=== PATIENT | female | born 1955 | race Caucasian/White ===

== ENCOUNTER → 2019-06-19 12:21 | Outpatient (CLI) | payer MEDICARE, SELFPAY ==
--- NOTE | 2019-06-19 12:57 | CA_ITS ---
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: CT Laterality: Bilateral Study Quality: Good Indications: syncope Risk Factors Hypertension: Doppler Spectral Velocity Analysis ECA (R) 96.80/19.70 cm/s ECA (L) 77.10/16.50 cm/s dICA (R) 63.50/31.30 cm/s dICA (L) 57.10/24.40 cm/s Alisson (R) 71.30/26.40 cm/s Alisson (L) 97.00/36.00 cm/s pICA (R) 109.70/45.20 cm/s pICA (L) 50.80/20.30 cm/s dCCA (R) 71.10/20.60 cm/s dCCA (L) 59.10/21.20 cm/s pCCA (R) 59.10/18.80 cm/s pCCA (L) 55.20/14.10 cm/s Vert (R) 39.80/15.80 cm/s Vert (L) 34.70/11.60 cm/s ICA/CCA 1.50 ICA/CCA 1.60 Conclusion Duplex evaluation demonstrates stenosis of the right proximal internal carotid artery <20% with PSV <140 cm/sec, EDV <100 cm/sec, and IC/CC Ratio <4.0. Duplex evaluation demonstrates stenosis of the left proximal internal carotid artery <20% with PSV <140 cm/sec, EDV <100 cm/sec, and IC/CC Ratio <4.0. Duplex evaluation demonstrates antegrade flow of the bilateral Vertebral Arteries. Electronically signed by : Andrae Gee MD 06/19/2019 16:31:30
== END ==
DX: R55 Syncope and collapse (principal); I10 Essential (primary) hypertension
CPT/HCPCS: 93880

== ENCOUNTER → 2020-04-22 14:39 | Outpatient (CLI) | payer MEDICARE, SELFPAY ==
--- NOTE | 2020-04-22 14:41 | MM_ITS ---
PROCEDURE: MM DIG MAMM BI DX W/CAD Digital Breast Tomosynthesis Included CLINICAL INDICATION: MASTODYNIA There is a history of breast cancer patient's sister diagnosed in her 50s. The patient complains of pain in the left breast. COMPARISON: No exams were available for comparison TECHNIQUE: Standard CC and MLO images and 3D Tomosynthesis was obtained. R2 CAD reviewed. FINDINGS: Scattered fibroglandular densities are seen throughout both breasts. There couple of benign-appearing calcifications right breast and a few scattered benign-appearing microcalcifications subareolar region left breast. There is faint arterial calcification right breast. There are fatty replaced nodes in both axilla. There is no suspicious lesion and no suspicious microcalcifications. IMPRESSION: Fibrofatty parenchyma with no suspicious lesions seen BI-RAD Category: 2 Benign Finding(s) FOLLOW-UP: 1YR 1 Year Follow-up (A letter has been sent to the patient regarding results of the study.) Dictated by: Dr. Tung Jackman MD 04/28/2020 09:16 Dr. Tung Jackman MD in [place] 04/28/2020 09:16
== END ==
PROVIDERS: PCP Nurse Practitioner Family; Visit Provider Nurse Practitioner Family
DX: N64.4 Mastodynia (principal); Z80.3 Family history of malignant neoplasm of breast
CPT/HCPCS: 77062; 77066; G0279

== ENCOUNTER → 2021-05-13 13:38 | Outpatient (CLI) | payer MEDICARE, SELFPAY ==
[2021-05-13 13:34] LABS: Basophils % 0.6 % (0.1-2.0); Eosinophils # 0.2 K/mm3 (0.0-0.4); Eosinophils % 2.6 % (0.1-12.0); Hematocrit 46.1 % (37.0-47.0); Hemoglobin 15.8 g/dL (12.2-16.2); Lymphocytes # 3.1 K/mm3 (0.7-4.5); Lymphocytes % 47.5 % (10-50); Mean Corpuscular HGB Conc 34.3 g/dL (31.8-35.4); Mean Corpuscular Volume 98.9 fl (81-99); Mean Platelet Volume 7.7 fl (7.4-10.4); Monocytes # 0.4 K/mm3 (0.1-1.0); Monocytes % 6.2 % (1.7-9.3); Neutrophils # 2.8 K/mm3 (1.8-7.8); Neutrophils % 43.1 % (37.0-80.0); Platelet Count 245 K/mm3 (142-424); Red Blood Count 4.66 M/mm3 (4.20-5.40); Red Cell Distribution Width 12.5 % (11.5-17.5); White Blood Count 6.6 K/mm3 (4.8-10.8)
[2021-05-13 13:43] LABS: Hemoglobin A1C 7.5 % (4.0-6.0)
[2021-05-13 14:20] LABS: Alanine Aminotransferase 22 U/L (12-78); Albumin Level 4.4 g/dl (3.5-5.0); Albumin/Globulin Ratio 1.8 (1.1-1.8); Alkaline Phosphatase 57 U/L (38-126); Anion Gap 12.5 mEq/L (5-15); Aspartate Amino Transferase 24 U/L (14-36); Bilirubin,Total 0.5 mg/dl (0.2-1.3); Blood Urea Nitrogen 9 mg/dl (7-17); Calcium 9.5 mg/dl (8.4-10.2); Carbon Dioxide 30 mmol/L (22.0-30.0); Chloride 98 mmol/L (98-107); Chol/HDL Ratio 2.6 (1-3.5); Cholesterol 144 mg/dl (140-200); Estimated Glomerular Filt Rate 100 ml/min (>60); GFR (African American) 121 ML/MIN (>60); Globulin 2.4 g/dL (1.3-3.2); Glucose 229 mg/dl (74-100); HDL Cholesterol 56 mg/dl (40-60); Potassium 3.5 mmoL/L (3.5-5.1); Sodium 137 mmol/L (136-145); Total Protein,Serum 6.8 g/dl (6.3-8.2); Triglycerides 267 mg/dl (30-150); VLDL Cholesterol 53 mg/dL (0-40)
[2021-05-13 14:37] LABS: 25-OH Vitamin D, Total 36.8 ng/mL (30-100)
[2021-05-13 14:51] LABS: Thyroid Stimulating Hormone 3.89 uIU/mL (0.465-4.68)
== END ==
PROVIDERS: Visit Provider Family Medicine
DX: E11.9 Type 2 diabetes mellitus without complications (principal); E55.9 Vitamin D deficiency, unspecified; Z79.84 Long term (current) use of oral hypoglycemic drugs
CPT/HCPCS: 80053; 80061; 82306; 83036; 84443; 85025

== ENCOUNTER → 2022-07-07 20:42 | Outpatient (CLI) | payer MEDICARE, SELFPAY ==
[2022-07-07 19:47] LABS: Basophils % 0.4 % (0.1-2.0); Eosinophils # 0.2 K/mm3 (0.0-0.4); Hematocrit 45.3 % (37.0-47.0); Hemoglobin 14.4 g/dL (12.2-16.2); Lymphocytes # 2.8 K/mm3 (0.7-4.5); Lymphocytes % 34.7 % (10-50); Mean Corpuscular HGB Conc 31.9 g/dL (31.8-35.4); Mean Corpuscular Hemoglobin 33.8 pg (27.0-31.2); Mean Corpuscular Volume 106.2 fl (81-99); Mean Platelet Volume 8.7 fl (7.4-10.4); Monocytes # 0.5 K/mm3 (0.1-1.0); Monocytes % 5.7 % (1.7-9.3); Neutrophils # 4.5 K/mm3 (1.8-7.8); Neutrophils % 56.3 % (37.0-80.0); Platelet Count 257 K/mm3 (142-424); Red Blood Count 4.27 M/mm3 (4.20-5.40); Red Cell Distribution Width 13.7 % (11.5-17.5); White Blood Count 8.1 K/mm3 (4.8-10.8)
[2022-07-07 20:31] LABS: Alanine Aminotransferase 23 U/L (12-78); Albumin Level 4.4 g/dl (3.5-5.0); Albumin/Globulin Ratio 1.8 (1.1-1.8); Alkaline Phosphatase 63 U/L (38-126); Aspartate Amino Transferase 36 U/L (14-36); Bilirubin,Total 0.4 mg/dl (0.2-1.3); Blood Urea Nitrogen 10 mg/dl (7-17); Calcium 9.5 mg/dl (8.4-10.2); Carbon Dioxide 29 mmol/L (22.0-30.0); Chloride 100 mmol/L (98-107); Chol/HDL Ratio 1.5 (1-3.5); Cholesterol 134 mg/dl (140-200); Estimated Glomerular Filt Rate 100 ml/min (>60); GFR (African American) 121 ML/MIN (>60); Globulin 2.4 g/dL (1.3-3.2); Glucose 138 mg/dl (74-100); HDL Cholesterol 87 mg/dl (40-60); Sodium 142 mmol/L (136-145); Total Protein,Serum 6.8 g/dl (6.3-8.2); Triglycerides 91 mg/dl (30-150); VLDL Cholesterol 18 mg/dL (0-40)
[2022-07-07 20:43] LABS: Direct LDL Cholesterol 50.29 mg/dL (100-129)
[2022-07-07 20:50] LABS: 25-OH Vitamin D, Total 39.8 ng/mL (30-100)
[2022-07-07 21:04] LABS: Thyroid Stimulating Hormone 0.03 uIU/mL (0.465-4.68)
[2022-07-09 12:10] LABS: HIV Screen 4th Generation wRfx Non Reactive (Non Reactive); Hep A Ab, Total Positive (Negative); Hep B Core Ab, Total Negative (Negative); Hep B Surface Ab, Qual Non Reactive (.)
[2022-07-24 22:55] LABS: Hepatitis B Surface Antigen Negative; Hepatitis C Antibody Non Reactive
[2022-07-24 22:56] LABS: Fibrosis Score 0.05; Necroinflammat Activity Score 0.05
[2022-07-24 22:57] LABS: ALT (SGPT) P5P 18; Alpha 2-Macroglobulins, Qn 234; Apolipoprotein A-1 198; Bilirubin, Total 0.1; GGT 14; Haptoglobin 139; Necroinflammat Activity Grade A0-No Activity
== END ==
PROVIDERS: PCP Nurse Practitioner Family; Visit Provider Nurse Practitioner Family
DX: E11.9 Type 2 diabetes mellitus without complications (principal); B19.20 Unspecified viral hepatitis C without hepatic coma; E55.9 Vitamin D deficiency, unspecified; Z79.84 Long term (current) use of oral hypoglycemic drugs; Z11.4 Encounter for screening for human immunodeficiency virus [HIV]
CPT/HCPCS: 80053; 80061; 81596; 82306; 84443; 85025; 86703; 86704; 86706; 86708; 87340; 87380; 87522; G0432

== ENCOUNTER → 2022-11-25 10:27 | Outpatient (CLI) | payer MEDICARE, SELFPAY ==
--- NOTE | 2022-11-25 10:27 | MM_ITS ---
PROCEDURE INFORMATION: Exam: MG Bilateral Screening 3D Mammography Exam date and time: 11/25/2022 10:28 AM Age: 67 years old Clinical indication: Screening mammogram TECHNIQUE: Imaging protocol: Bilateral Screening tomosynthesis and 2D mammography including computer-aided detection (CAD) when performed. COMPARISON: MG MM DIG MAMM BI DX W/CAD 04/22/2020 2:48 PM FINDINGS: MAMMOGRAPHY: Breast composition: There are scattered areas of fibroglandular density. Mass: None. Architectural distortion: No new or suspicious architectural distortion. Calcifications: No new or suspicious calcifications are present Asymmetric density: No new or suspicious asymmetric density is present Skin thickening: None. Axillary adenopathy: None. IMPRESSION: No mammographic evidence of malignancy. Recommend annual screening mammography unless otherwise clinically indicated. ASSESSMENT: BI-RADS category 1: Negative
== END ==
PROVIDERS: PCP Nurse Practitioner Family; Visit Provider Nurse Practitioner Family
DX: Z12.31 Encounter for screening mammogram for malignant neoplasm of breast (principal)
CPT/HCPCS: 77063; 77067

== ENCOUNTER 2023-01-12 09:04 | Day surgery (SDC) | payer MEDICARE, SELFPAY ==
[2023-01-02 15:25] VITALS: BMI 33.5
[2023-01-12 09:26] VITALS: BP 167/89; PULSE 72; RESP 20; TEMP 36.6; O2SAT 100
[2023-01-12 09:39] LABS: POC Glucose,Bedside 130 (70-110)
--- NOTE | 2023-01-12 09:40 | P.PNANES_ITS ---
[facility] Disclaimer: The information contained in this section may have been updated after the patient was seen, as this information can be updated by other users. Medical History Diabetes mellitus, type 2 History of cataract Hyperlipidemia Hypertension Surgical History H/O tubal ligation History of cholecystectomy Family History Other Family history of acute congestive heart failure Family history of cancer Social History Smoking Status: Former smoker alcohol intake: current substance use type: denies use current occupational status: disabled Travel in the last 8 weeks: None caffeine: Yes [facility] Anesthesia Checklist Patient Identification Patient Identification: Verbal (Name & ) Structural Data Admitted From: Home Planned Operative Procedure/s: colonoscopy Consent for Planned Operative Procedure(s) Verified: Yes NPO Status Verified Time NPO: 00:00 Airway Assessment Mallampati Score:: Class II C-Spine Mobility Assessed: Yes TMJ Mobility Assessed: Yes Dentition: Edentulous Neurological Assessment Level of Consciousness: Awake, Alert and Appropriate Anesthesia Plan Anesthesia Risk discussed: Yes Anesthesia Plan: Verified ASA Class: II Anesthesia Type: MAC
[2023-01-12 10:05] VITALS: BP 94/59; PULSE 69; RESP 14; O2SAT 92
--- NOTE | 2023-01-12 10:05 | HMH.SCOPE ---
Procedure: Date: 01/12/23 Patient Date of :: 1955 Procedure Performed:: Screening colonoscopy Indications:: History of polyps and family history of colon cancer Performing Provider:: Micha Gonzalez MD Referring Provider:: Ruben Strong APRN Sedation:: Propofol Procedure:: After placing the patient in the left lateral decubitus position, the colonoscopy was gently inserted into the rectum and under direct visualization advanced to the cecum which was identified by transillumination in the right lower quadrant, identification of the ileocecal valve, appendiceal orifice, and cecal strap. Color, texture, mucosa, and anatomy of the colon were carefully examined with the scope. Findings:: Anal canal: normal Rectum: normal Sigmoid colon:floopy, loopy but normal without polyps or inflammatory changes Descending colon: normal without polyps or inflammatory changes Splenic flexure: normal Transverse colon: normal without polyps or inflammatory changes Hepatic flexure: normal Ascending colon: normal without polyps or inflammatory changes Cecum: normal Terminal ileum: not visualized Impression: Normal colonoscopy Recommendations:: Follow up examination in about FIVE years or so, sooner if clinically indicated in view of family history of colon cancer. Complications:: None Estimated blood obtained (mL): 0 Colonoscopy Component Colonoscopy Component Was a colonoscopy performed during today's procedure?: Yes Recommended follow up colonoscopy of at least 10 years?: No If no, follow up colonoscopy recommended in ___ years?: Five Reason for not recommending >/= 10 yr follow-up interval?: As noted above
[2023-01-12 10:15] VITALS: BP 107/49; PULSE 74; RESP 16; O2SAT 92
[2023-01-12 10:25] VITALS: BP 97/53; PULSE 62; RESP 17; O2SAT 95
[2023-01-12 10:35] VITALS: BP 116/63; PULSE 63; RESP 17; O2SAT 99
== END 2023-01-12 11:00 | disposition home or self-care (01) ==
PROVIDERS: PCP Nurse Practitioner Family; Visit Provider Internal Medicine Gastroenterology
PROC: 0DJD8ZZ Inspection of Lower Intestinal Tract, Via Natural or Artificial Opening Endoscopic (ICD-10-PCS; CPT 45378; principal; 2023-01-12 10:00)
DX: Z12.11 Encounter for screening for malignant neoplasm of colon (principal); Z86.010 Personal history of colon polyps; Z80.0 Family history of malignant neoplasm of digestive organs; E11.9 Type 2 diabetes mellitus without complications
CPT/HCPCS: G0105; 82962

== ENCOUNTER 2023-04-06 22:28 | Outpatient (CLI) | payer MEDICARE, SELFPAY ==
[2023-04-06 18:18] LABS: Basophils # 0.1 K/mm3 (0-0.2); Basophils % 1.1 % (0.1-2.0); Eosinophils # 0.2 K/mm3 (0.0-0.4); Eosinophils % 2.6 % (0.1-12.0); Hematocrit 50.4 % (37.0-47.0); Hemoglobin 15.5 g/dL (12.2-16.2); Lymphocytes # 2.6 K/mm3 (0.7-4.5); Lymphocytes % 39.5 % (10-50); Mean Corpuscular HGB Conc 30.7 g/dL (31.8-35.4); Mean Corpuscular Volume 113.9 fl (81-99); Mean Platelet Volume 8.8 fl (7.4-10.4); Monocytes # 0.5 K/mm3 (0.1-1.0); Monocytes % 7.6 % (1.7-9.3); Neutrophils # 3.3 K/mm3 (1.8-7.8); Neutrophils % 49.2 % (37.0-80.0); Platelet Count 239 K/mm3 (142-424); Red Blood Count 4.43 M/mm3 (4.20-5.40); Red Cell Distribution Width 14.1 % (11.5-17.5); White Blood Count 6.7 K/mm3 (4.8-10.8)
[2023-04-06 19:48] LABS: Alanine Aminotransferase 24 U/L (12-78); Albumin Level 4.2 g/dl (3.5-5.0); Alkaline Phosphatase 77 U/L (38-126); Anion Gap 12.6 mEq/L (5-15); Aspartate Amino Transferase 27 U/L (14-36); Bilirubin,Total 0.7 mg/dl (0.2-1.3); Blood Urea Nitrogen 9 mg/dl (7-17); Calcium 9.5 mg/dl (8.4-10.2); Carbon Dioxide 28 mmol/L (22.0-30.0); Chloride 102 mmol/L (98-107); Chol/HDL Ratio 2.4 (1-3.5); Cholesterol 149 mg/dl (140-200); Estimated Glomerular Filt Rate 99 ml/min (>60); GFR (African American) 120 ML/MIN (>60); Globulin 2.1 g/dL (1.3-3.2); Glucose 291 mg/dl (74-100); HDL Cholesterol 62 mg/dl (40-60); Potassium 4.6 mmoL/L (3.5-5.1); Sodium 138 mmol/L (136-145); Total Protein,Serum 6.3 g/dl (6.3-8.2); Triglycerides 148 mg/dl (30-150); VLDL Cholesterol 30 mg/dL (0-40)
[2023-04-06 20:03] LABS: Direct LDL Cholesterol 65.26 mg/dL (100-129)
[2023-04-06 20:12] LABS: 25-OH Vitamin D, Total 38.4 ng/mL (30-100); Hemoglobin A1C 8.5 % (4.0-6.0)
[2023-04-06 20:24] LABS: Thyroid Stimulating Hormone 2.42 uIU/mL (0.465-4.68)
[2023-04-06 23:46] LABS: Microalbumin < 6.000 mg/L (0-16.7)
== END 2023-04-06 23:59 ==
LOC: LAB.DROPOF 22:28
PROVIDERS: PCP Nurse Practitioner Family; Visit Provider Nurse Practitioner Family
DX: E11.9 Type 2 diabetes mellitus without complications (principal); F41.9 Anxiety disorder, unspecified; E78.5 Hyperlipidemia, unspecified; E55.9 Vitamin D deficiency, unspecified; I10 Essential (primary) hypertension; Z79.84 Long term (current) use of oral hypoglycemic drugs
CPT/HCPCS: 80053; 80061; 82043; 82306; 83036; 84443; 85025

== ENCOUNTER 2023-08-03 14:36 | Outpatient (CLI) | payer MEDICARE, SELFPAY ==
--- NOTE | 2023-08-03 14:36 | CA_ITS ---
APPROVED REPORT EXAM: Comprehensive 2D, Doppler, and color-flow Echocardiogram Family Nurse: Darlene Marsh RVT Ht: 5 ft 2 in Wt: 174lbs BSA: 1.80 BP: 118/80 mmHg Indications: SOA,CP,DM,HTN,EX SMOKER 2D Dimensions IVSd 1.24 cm F: 0.6-1.0 LVEF (Visual) 75.40 % PWd 0.76 cm F: 0.6 - 1.0 LA Volume 51.10 mL LVDd 3.69 cm F: 3.9 - 5.3 LA Volume Index 28.39 mL/m2 (M/F) 16-34 LVDs 2.09 cm F: 2.2 - 3.5 M-Mode Dimensions LA Diam 2.69 cm (1.9-4.0) TAPSE 2.17 (<1.7) LV Diastology E Decel Time 280 (160-240 msec) E/A Ratio 0.7 Aortic Valve SIXTO Index 1.42 cm2/m2 AoV Peak Philipp. 117.0 (50-130 cm/s) AO Peak GR. 5.50 mmHg AO Mean GR. 3.00 (<5 mmHg) AO VTI 24.5 (18-25 cm) SIXTO (VTI) 2.63 (2.5-4.5 cm2) Mitral Valve MV E Max Philipp. 44.0 (40-130 cm/s) MV A Velocity 61.0 (40-130 cm/s) E/A Ratio 0.73 MV PHT 82.0 ms Pulmonary Valve PV Peak Velocity 63.0 (50-150 cm/s) Left Ventricle The left ventricle is normal size. The left ventricular systolic function is normal. The left ventricular ejection fraction is within the normal range. There is increased LV wall thickness. Proximal septal thickening is noted. There is normal LV segmental wall motion. Transmitral Doppler flow pattern suggests impaired LV relaxation. LVEF is 55%. Right Ventricle Right ventricle is mildly dilated. The right ventricular systolic function is normal. Atria Left atrium is mildly dilated. Right atrium is mildly dilated. There is no Doppler evidence of interatrial shunt. Aortic Valve The aortic valve opens well. There is no aortic valvular stenosis. No aortic regurgitation is present. Mitral Valve The mitral valve is normal in structure. No evidence of mitral valve stenosis. Trace mitral regurgitation. Tricuspid Valve The tricuspid valve leaflets are thin and pliable. Trace tricuspid regurgitation. There is insufficient TR jet to estimate RVSP. Pulmonic Valve The pulmonary valve is normal in structure. Trace pulmonic regurgitation. Great Vessels The aortic root is normal in size. The ascending aorta is not well-visualized. IVC is normal in size and collapses >50% with inspiration. Pericardium There is no pericardial effusion. Other Information Study Quality: Fair Conclusion Normal biventricular systolic function. Mild RV dilation. Mild biatrial dilation. No significant valvular stenosis or regurgitation. Electronically signed by : Arabella Alan MD 08/07/2023 12:13:15
== END 2023-08-03 23:59 | disposition home or self-care (01) ==
LOC: RT 14:36
PROVIDERS: PCP Nurse Practitioner Family; Visit Provider Nurse Practitioner Family
DX: R06.02 Shortness of breath (principal); R07.89 Other chest pain
CPT/HCPCS: 93306

== ENCOUNTER 2023-09-07 09:00 | Outpatient (CLI) | payer MEDICARE, SELFPAY ==
[2023-09-07] VITALS (8 sets, daily range): BP systolic 122–197; BP diastolic 71–119; PULSE 58–72; RESP 18; TEMP 36.9; O2SAT 96–99; BMI 31.8
--- NOTE | 2023-09-07 09:01 | CT_ITS ---
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 A noncontrast coronary calcium scan was performed. A CT attenuation threshold of 130 Hounsfield units (HU) was used for the detection of calcium in contiguous voxels of 1 sq mm in area to be counted as individual lesions. Bolus tracking in the ascending aorta with a threshold of 180 HU was performed. Immediately afterwards, ECG synchronized cardiac CT was then performed from the cardiac base to apex using retrospective gating with ECG tube current modulation. A total of 85 mL of Isovue 370 mg/mL contrast medium was administered at 5 mL/sec followed by a saline flush using a biphasic injection protocol. A tube voltage of 120 KVp was used. The patient received the following medications prior to the cardiac CT. 0.8 mg of sublingual nitroglycerin The average heart rate at the time of acquisition was 57 bpm and regular. Image Reconstruction Transaxial images were reconstructed at 0.67 mm slide thickness. Data was reviewed interactively on an advanced workstation capable of 2 and 3-dimensional displays in all conventional reconstruction formats, including multiplanar reformations, maximum intensity projections, curved multiplanar reformations, and volume rendered reconstructions. When applicable, selected routine images describing the relevant coronary anatomy and pathology were saved and sent to PACS. Complications None Technical Quality Overall image quality was good. Coronary artery opacification was adequate. Total DLP (Dose-Length Product) is 1390.7 mGy-cm. The reported value represents the total of one or more individual components during the CT acquisition of this date and at this time, and as such, the same value may appear in more than one CT report depending on the interpreting/reporting physicians. COMPARISON None FINDINGS CT Coronary Calcium Scoring LMA (Left Main Artery) = 15 LAD (Left Anterior Descending) = 511 LCX (Left Coronary Circumflex) = 87 RCA (Right Coronary Artery) = 523 Total Calcium Score = 1135 using the AJ-130 method. The observed calcium score of 1135 is at 98th percentile for subjects of the same age, sex, and race/ethnicity. The interpretation of the calcium heart score is based on the following continuum*: 0 = no calcified plaque detected (risk of coronary artery disease is very low ??? less than 5%) 1-10 = calcium detected in extremely minimal levels (risk of coronary diseases is still low ??? less than 10%) 11-100 = mild levels of plaque detected with certainty (mild or minimal narrowing of heart arteries is likely) 101-400 = definite,at least moderate levels of plaque detected (relatively high risk of a heart attack within 3-5 years) >401-999 = extensive levels of plaque detected (high risk of heart attack, high levels of vascular disease are present, high likelihood of at least one significant coronary narrowing) *The calcium heart score quantifies the burden of coronary calcification/plaque in the coronary arteries. The calcium heart score is not able to evaluate the presence or burden of non-calcified (i.e. soft) plaque. There is no identifiable calcification in the aortic valve, mitral annulus or mitral valve, pericardium, or myocardium. Coronary CT Angiography The coronary arterial system is right dominant. Quantitative Stenosis Grading: Left Main (LM): The left main originates normally from the left sinus of Valsalva. The LM bifurcates into the left anterior descending artery and left circumflex artery. There is calcified plaque in the LM, without presence of luminal stenosis. Left Anterior Descending (LAD) and Diagonal Branches: The LAD gives off 2 diagonal branch(es). There is mixed calcified/noncalcified plaque in the proximal and mid LAD segments, with up to 50 to 70% luminal stenosis. There is no evidence of LAD-myocardial bridge. Left Circumflex (LCX) and Obtuse Marginals (OM): The LCX gives off 1 Obtuse Marginal (OM) branch(es). There is mixed calcified/noncalcified plaque in the proximal LCx, with 25-50% luminal stenosis. Right Coronary Artery (RCA): The RCA originates normally from the right sinus of Valsalva. The RCA gives off a posterior descending artery (PDA) and posterolateral (PL) branches. There is mixed calcified/noncalcified plaque along the RCA trajectory, with up to 50-70% luminal stenosis in the proximal RCA segment. Non-Coronary Cardiac Findings: Analysis of the left ventricular (LV) structure and function was performed after 3-D reconstruction of the LV from axial images, with user-corrected automatic contouring for assessment of LV volumes and user-defined reconstruction from oblique planes for measurement of 3-D cardiac structure and function. -The left ventricle systolic function is normal. -There is no left atrial appendage filling defect. Two right pulmonary veins and two left pulmonary veins drain normally into the left atrium. -No pericardial thickening or calcification. -Central and branch pulmonary arteries in the [id number] are unremarkable. -Thoracic aorta within the visualized thoracic aortic-branches in the [id number] is unremarkable. Extracardiac Structures No significant extra-cardiac findings. Note, however, that this study is focused on the cardiac findings. IMPRESSION -Extensive coronary calcification with an Agatston score = 1135 using the AJ-130 method. -The observed calcium score of 1135 is at 98th percentile for subjects of the same age, sex, and race/ethnicity. -Presence of multivessel atherosclerotic coronary disease, with moderate luminal stenosis in the LAD and RCA segments, with possible evidence of significant flow-limiting atherosclerosis. -CAD-RADS 3. Management recommendations per ACC/AHA guidelines*, as clinically appropriate. *Recommendations: CAD RADS 0: Reassurance. Consider non-atherosclerotic causes of chest pain. CAD RADS 1: Consider non-atherosclerotic causes of chest pain. Consider preventive therapy and risk factor modification. CAD RADS 2: Consider non-atherosclerotic causes of chest pain. Consider preventive therapy and risk factor modification, particularly for patients with nonobstructive plaque in multiple segments. CAD RADS 3: Consider further functional testing. Consider symptom-guided anti-ischemic and preventive pharmacotherapy as well as risk factor modification per published guideline statements. CAD RADS 4A: Consider further functional testing or invasive coronary angiography with revascularization per published guideline statements. Consider symptom-guided anti-ischemic and preventive pharmacotherapy as well as risk factor modification per published guideline statements. CAD RADS 4B: Invasive coronary angiography recommended with revascularization per published guideline statements. Consider symptom-guided anti-ischemic and preventive pharmacotherapy as well as risk factor modification per published guideline statements. CAD RADS 5: Consider invasive angiography and/or viability assessment with revascularization per published guideline statements. Consider symptom-guided anti-ischemic and preventive pharmacotherapy as well as risk factor modification per published guideline statements. CRITICAL RESULT None COMMUNICATION Per this written report The coronary and cardiac findings of this CCTA were reviewed, reported, and signed by Aníbal Alan MD (Housecleaner Floor) Conclusion Electronically signed by : Arabella Alan MD 09/07/2023 16:43:32
[2023-09-07 09:39] LABS: Anion Gap 12.2 mEq/L (5-15); Blood Urea Nitrogen 6 mg/dl (7-17); Calcium 9.2 mg/dl (8.4-10.2); Carbon Dioxide 28 mmol/L (22.0-30.0); Chloride 99 mmol/L (98-107); Creatinine Clearance Estimated 67 mL/min (50-200); Estimated Glomerular Filt Rate 99 ml/min (>60); GFR (African American) 120 ML/MIN (>60); Glucose 157 mg/dl (74-100); Potassium 3.2 mmoL/L (3.5-5.1); Sodium 136 mmol/L (136-145)
[2023-09-07] MEDS: NITROGLYCERIN 0.4MG SL TABLET SL (09:55)
[2023-09-07] MEDS: METOPROLOL TARTRATE 5MG/5ML VIAL 5 MG IV (10:00)
[2023-09-07] MEDS: IOPAMIDOL-370 (76%);100ML BOTTLE 85 ML IV (10:09)
[2023-09-07] MEDS: SODIUM CHLORIDE 0.9% 50ML BAG 50 ML IV (10:09)
[2023-09-07] MEDS: SODIUM CHLORIDE 0.9% 10ML SYR (RAD ONLY) 10 ML IV (10:09)
== END 2023-09-07 10:41 | disposition home or self-care (01) ==
PROVIDERS: PCP Nurse Practitioner Family; Visit Provider Physician Assistant
DX: R07.89 Other chest pain (principal); I10 Essential (primary) hypertension; E78.5 Hyperlipidemia, unspecified; R06.02 Shortness of breath; R94.31 Abnormal electrocardiogram [ECG] [EKG]; E11.9 Type 2 diabetes mellitus without complications; Z79.84 Long term (current) use of oral hypoglycemic drugs; Z79.85 Long-term (current) use of injectable non-insulin antidiabetic drugs; Z87.891 Personal history of nicotine dependence
CPT/HCPCS: 75574; 80048; Q9967

== ENCOUNTER 2023-11-09 08:33 | Day surgery (SDC) | payer MEDICARE, SELFPAY ==
[2023-11-09] VITALS (13 sets, daily range): BP systolic 104–174; BP diastolic 45–90; PULSE 57–74; RESP 16–20; TEMP 36.9; O2SAT 92–99; BMI 32.5
--- NOTE | 2023-11-09 07:18 | IR_ITS ---
APPROVED REPORT Patient Location: Outpatient Last Puller: CHINA Ng RT (R) PROCEDURES Left heart catheterization Left ventriculogram Selective coronary angiogram Drug-eluting stent deployment to the mid LAD INDICATION Coronary artery disease, Angina pectoris, Abnormal CCTA Informed consent was obtained prior to the procedure. COMPLICATIONS none Estimated Blood Loss: less than 10ml TECHNIQUE One percent lidocaine used to anesthetize the right anterior aspect of the wrist. The right radial artery was accessed via the Seldinger technique. A 6 Wallisian sheath was placed in the right radial artery. 2.5 mg of Verapamil, 800 mcg of nitroglycerin, 1mg Lidocaine and 5000 U Heparin were given through the arterial sheath. The tig catheter was also used to perform left heart catheterization, left ventriculogram and selective coronary angiogram. A 6 Wallisian JL 3 guide catheter was placed in the left main artery and further diagnostic angiography was performed. Following this therapeutic heparin was administered giving a therapeutic ACT and a choice floppy wire was placed distally into the LAD. A 2.75 x 15 mm Christian frontier stent was deployed at 18 rufus reducing the severe stenosis to less than 10%. Excellent angiographic results were obtained. ADRIA-3 flow was present before and after the procedure. Then the procedure the apparatus was removed the sheath was removed and hemostasis was achieved using TR banding patient was transferred to the postop putting in stable condition ANGIOGRAPHIC RESULTS The left main artery Normal The left anterior descending artery Proximally normal and has a mid vessel concentric calcified 70% stenosis immediately after a large first diagonal artery. The remaining vessel is highly tortuous The circumflex artery Is codominant and has proximal and mid vessel diffuse 30 and 40% calcified stenoses The right coronary artery is codominant and has proximal 20% calcified stenosis mid vessel 30 and 40% stenosis with distal concentric 40% calcified stenoses The BELL ventriculogram reveals Not performed The left ventricular end-diastolic pressure Not measured IMPRESSION Severe mid LAD stenosis with successful stenting mid LAD severe disease reduced to 0% Diffuse calcification as described above PLAN 1. Dual antiplatelet therapy 2. LDL less than 55 to be achieved with high intensity statin 3. Risk factor modification 4. Cardiac rehabilitation 5. Avoidance of tobacco products Electronically signed by : Jagdish Mason MD 11/09/2023 11:59:02
[2023-11-09 09:04] LABS: Basophils # 0.1 K/mm3 (0-0.2); Basophils % 0.9 % (0.1-2.0); Eosinophils # 0.2 K/mm3 (0.0-0.4); Hematocrit 51.3 % (37.0-47.0); Hemoglobin 16.4 g/dL (12.2-16.2); Lymphocytes # 2.9 K/mm3 (0.7-4.5); Lymphocytes % 47.8 % (10-50); Mean Corpuscular HGB Conc 31.9 g/dL (31.8-35.4); Mean Corpuscular Volume 109.7 fl (81-99); Mean Platelet Volume 7.1 fl (7.4-10.4); Monocytes # 0.4 K/mm3 (0.1-1.0); Monocytes % 5.9 % (1.7-9.3); Neutrophils # 2.6 K/mm3 (1.8-7.8); Neutrophils % 42.4 % (37.0-80.0); Platelet Count 253 K/mm3 (142-424); Red Blood Count 4.68 M/mm3 (4.20-5.40); Red Cell Distribution Width 13.9 % (11.5-17.5); White Blood Count 6.1 K/mm3 (4.8-10.8)
[2023-11-09 09:08] LABS: Chloride 95 mmol/L (98-107); Potassium 3.9 mmoL/L (3.5-5.1); Sodium 137 mmol/L (136-145)
[2023-11-09 09:11] LABS: Anion Gap 13.9 mEq/L (5-15); Blood Urea Nitrogen 13 mg/dl (7-17); Carbon Dioxide 32 mmol/L (22.0-30.0); Creatinine Clearance Estimated 69 mL/min (50-200); Estimated Glomerular Filt Rate 99 ml/min (>60); GFR (African American) 120 ML/MIN (>60); Glucose 250 mg/dl (74-100)
[2023-11-09] MEDS: diphenhydrAMINE 50MG/ML VIAL 50 MG IV (10:29)
[2023-11-09] MEDS: LIDOCAINE 1% 10ML MDV 20 ML IJ (10:29)
[2023-11-09] MEDS: HEPARIN 1,000 UNITS/ML 10ML VIAL (CATH LAB) 10000 UNIT IV ×2 (10:29→11:07)
[2023-11-09] MEDS: HEPARIN 1,000 UNITS/500ML NS (CATH LAB) 3000 UNIT IV (10:29)
[2023-11-09] MEDS: 0.9 % SODIUM CHLORIDE 500 ML 25 ML IV (10:29)
[2023-11-09] MEDS: NITROGLYCERIN 800MCG/8ML SYR (CATH LAB) 800 MCG IA (10:30)
[2023-11-09] MEDS: VERAPAMIL 2.5MG/ML 2ML VIAL 2.5 MG IV (10:30)
[2023-11-09] MEDS: FENTANYL 100MCG/2ML VIAL 50 MCG IV (11:27)
[2023-11-09] MEDS: MIDAZOLAM HCL 1MG/1ML 5ML VIAL 1 MG IV (11:27)
[2023-11-09] MEDS: PRASUGREL 10MG TAB 60 MG PO (11:27)
[2023-11-09] MEDS: IOPAMIDOL-370 (76%);100ML BOTTLE 105 ML IV (11:37)
[2023-11-09 14:34] LABS: CATHL Activated Clotting Time 307 SEC (74-125)
== END 2023-11-09 15:20 | disposition home or self-care (01) ==
PROVIDERS: PCP Nurse Practitioner Family; Visit Provider Internal Medicine
DX: I25.118 Atherosclerotic heart disease of native coronary artery with other forms of angina pectoris (principal); R93.1 Abnormal findings on diagnostic imaging of heart and coronary circulation; R94.31 Abnormal electrocardiogram [ECG] [EKG]; E11.9 Type 2 diabetes mellitus without complications; E78.49 Other hyperlipidemia; I10 Essential (primary) hypertension; Z79.899 Other long term (current) drug therapy; Z79.84 Long term (current) use of oral hypoglycemic drugs; I77.1 Stricture of artery; Z79.85 Long-term (current) use of injectable non-insulin antidiabetic drugs
CPT/HCPCS: 80048; 85025; 85347; 92928; 93454; 99152; 99153; C1725; C1769; C1874; C9600; J1200; J1644; J2250; J3010; Q9967

== ENCOUNTER 2024-01-21 22:30 | Emergency (ER) | payer MEDICARE, SELFPAY ==
[2024-01-21 22:30] VITALS: BP 143/78; PULSE 70; RESP 16; TEMP 36.6; O2SAT 98; BMI 32.1
--- NOTE | 2024-01-21 22:30 | ECG_ITS ---
APPROVED REPORT Exam: Resting ECG HR:65 bpm ECG Measurements Heart Rate 65 AXES OK 144 P 36 QRSd 78 QRS 40 QT 374 T 17 QTc 386 Conclusion SINUS RHYTHM LOW QRS VOLTAGE IN PRECORDIAL LEADS [QRS DEFLECTION < 1.0 mV IN CHEST LEADS] NONSPECIFIC T-WAVE ABNORMALITY BORDERLINE ECG Electronically signed by : EMILY EPSTEIN, 01/21/2024 23:45:10
--- NOTE | 2024-01-21 22:34 | XR_ITS ---
PROCEDURE INFORMATION: Exam: XR Chest Exam date and time: 01/21/2024 10:32 PM Age: 68 years old Clinical indication: Pain; Left-sided; Additional info: Chest pain TECHNIQUE: Imaging protocol: Radiologic exam of the chest. Views: 1 view. COMPARISON: No relevant prior studies available. FINDINGS: Lungs: Unremarkable. No consolidation. Pleural spaces: Unremarkable. No pleural effusion. No pneumothorax. Heart/Mediastinum: Unremarkable. No cardiomegaly. Bones/joints: Screw plate fixation right humerus.. IMPRESSION: No acute findings.
[2024-01-21 22:48] LABS: Basophils # 0.1 K/mm3 (0-0.2); Eosinophils # 0.1 K/mm3 (0.0-0.4); Eosinophils % 1.6 % (0.1-12.0); Hematocrit 42.7 % (37.0-47.0); Hemoglobin 14.7 g/dL (12.2-16.2); Lymphocytes % 47.9 % (10-50); Mean Corpuscular HGB Conc 34.4 g/dL (31.8-35.4); Mean Corpuscular Hemoglobin 34.9 pg (27.0-31.2); Mean Corpuscular Volume 101.3 fl (81-99); Mean Platelet Volume 7.1 fl (7.4-10.4); Monocytes # 0.4 K/mm3 (0.1-1.0); Monocytes % 5.7 % (1.7-9.3); Neutrophils # 2.8 K/mm3 (1.8-7.8); Neutrophils % 43.8 % (37.0-80.0); Platelet Count 233 K/mm3 (142-424); Red Blood Count 4.22 M/mm3 (4.20-5.40); Red Cell Distribution Width 13.6 % (11.5-17.5); White Blood Count 6.3 K/mm3 (4.8-10.8)
[2024-01-21 22:54] LABS: Chloride 105 mmol/L (98-107); Sodium 138 mmol/L (136-145)
[2024-01-21 22:55] LABS: Potassium 4.1 mmoL/L (3.5-5.1)
[2024-01-21 22:57] LABS: Alanine Aminotransferase 22 U/L (12-78); Albumin/Globulin Ratio 1.7 (1.1-1.8); Alkaline Phosphatase 57 U/L (38-126); Anion Gap 10.1 mEq/L (5-15); Aspartate Amino Transferase 31 U/L (14-36); Bilirubin,Total 0.7 mg/dl (0.2-1.3); Blood Urea Nitrogen 12 mg/dl (7-17); Carbon Dioxide 27 mmol/L (22.0-30.0); Creatinine Clearance Estimated 68 mL/min (50-200); Estimated Glomerular Filt Rate 99 ml/min (>60); GFR (African American) 120 ML/MIN (>60); Globulin 2.3 g/dL (1.3-3.2); Total Protein,Serum 6.3 g/dl (6.3-8.2)
[2024-01-21 22:58] LABS: Calcium 9.1 mg/dl (8.4-10.2); Glucose 158 mg/dl (74-100)
[2024-01-21 23:04] LABS: D-Dimer 1.22 ug/mL (0.0-0.5)
--- NOTE | 2024-01-21 23:06 | CT_ITS ---
PROCEDURE INFORMATION: Exam: CTA Chest With Contrast Exam date and time: 01/21/2024 11:10 PM Age: 68 years old Clinical indication: Pain and abnormal findings; Abnormal diagnostic tests; Elevated d-dimer; Left-sided; Additional info: Chest pain, elevated d-dimer TECHNIQUE: Imaging protocol: Computed tomographic angiography of the chest with contrast. Exam focused on the arteries. 3D rendering (Not supervised by radiologist): MIP and/or 3D reconstructed images were created by the technologist. Radiation optimization: All CT scans at this facility use at least one of these dose optimization techniques: automated exposure control; mA and/or kV adjustment per patient size (includes targeted exams where dose is matched to clinical indication); or iterative reconstruction. Contrast material: ISOUVE 370; Contrast volume: 70 ml; Contrast route: INTRAVENOUS (IV); COMPARISON: CR XR CHEST PORTABLE 01/21/2024 10:32 PM FINDINGS: Pulmonary arteries: No central or large peripheral pulmonary emboli. Great vessels off aortic arch: Aortic arch great vessel origins are patent. Aorta: There is moderate dilation of the ascending aorta. No evidence for aortic aneurysm or dissection. Lungs: No focal infiltrates. Pleural spaces: Unremarkable. No pneumothorax. No pleural effusion. Heart: Unremarkable. No cardiomegaly. No pericardial effusion. Coronary arteries: Moderate coronary artery calcifications. Lymph nodes: Unremarkable. No enlarged lymph nodes. Bones/joints: Screw plate fixation right humerus; partially visualized. Multilevel degenerative change of the thoracic spine. Soft tissues: Unremarkable. IMPRESSION: 1. No central or large peripheral pulmonary emboli. 2. No focal infiltrates.
[2024-01-21 23:07] LABS: NT Pro Brain Natriuretic Pep. 596 pg/mL (0-125)
[2024-01-21 23:12] LABS: Troponin I < 0.01 ng/ml (0.00-0.034)
[2024-01-21] MEDS: 0.9 % SODIUM CHLORIDE 50 ML VIAL IV (23:22)
[2024-01-21] MEDS: IOPAMIDOL-370 (76%);100ML BOTTLE 70 ML IV (23:22)
--- NOTE | 2024-01-21 23:22 | [facility].EDCP ---
Discharge Plan Disposition Patient Disposition: Home, Self-Care Condition: Good Prescriptions Prescriptions: No Action (DME) OneTouch Verio test strips Strip See Rx Instructions .ROUTE .MEDSUPPLY Qty: 10 Rx Instructions: As directed Proair Digihaler 90 mcg/actuation aero powdr breath act w/sensor 1 ea inhalation BID (DME) lancets [Accu-Chek Softclix Lancets] Misc See Rx Instructions .Route Qty: 200 2RF Rx Instructions: Test glucose two times daily (DME) FreeStyle Lite Strips Strip See Rx Instructions .Route Qty: 100 0RF Rx Instructions: Test glucose two times daily famotidine 20 mg tablet 20 mg PO DAILY Qty: 30 2RF aspirin 81 mg tablet,delayed release (DR/EC) 81 mg PO DAILY Qty: 90 3RF lisinopril-hydrochlorothiazide 10-12.5 mg tablet 1 tab PO DAILY Qty: 90 3RF pantoprazole [Protonix] 40 mg tablet,delayed release (DR/EC) 40 mg PO DAILY Qty: 90 3RF prasugrel [Effient] 10 mg tablet 10 mg PO DAILY Qty: 90 3RF rosuvastatin 20 mg tablet 20 mg PO DAILY Qty: 90 3RF carvedilol 12.5 mg tablet 12.5 mg PO BID Qty: 60 5RF (DME) blood-glucose meter Kit See Rx Instructions .ROUTE .MEDSUPPLY Qty: 1 0RF Rx Instructions: As directed OR ONCE A DAY (DME) FreeStyle Test Strip See Rx Instructions .Route Qty: 100 0RF Rx Instructions: As directed or bid bupropion HCl 100 mg tablet sustained-release 12 hr See Rx Instructions .ROUTE .COMPLEX Qty: 90 0RF Dose Instruction: Take 1 tablet by mouth once daily Rx Instructions: Take 1 tablet by mouth once daily metformin 1,000 mg tablet 1,000 mg PO BID Qty: 180 3RF Ozempic 0.25 mg or 0.5 mg (2 mg/3 mL) pen injector 0.5 mg SQ WEEKLY Referrals Follow up/Referrals: Ruben Strong APRN [Primary Care Provider] - See instructions Activity Restrictions/Add. Instructions Additional Instructions/Restrictions: You were evaluated in the ER and are appropriate for discharge at this time. Continue taking your home medications as prescribed. Please make an appointment with cardiology to be seen in the next 1 to 2 days. Also make an appointment with your primary care doctor for reevaluation. Return to the ER with new, worsening, or otherwise concerning symptoms Clinical Impressions Clinical Impression: Chest pain Print Language Print Language: Finnish Discharge ED Provider: Laverne Arredondo HPI <Laverne Arredondo DO - Last Filed: 01/21/24 23:27> General Chief Complaint: Chest Pain Stated Complaint: Chest pain Time Seen by Provider: 01/21/24 22:34 Mode of Arrival: EMS Source of Information: Patient and EMS Limitations: No Limitations Description of Symptoms (Recalled from ER Triage Doc. by RN): Pt presents to ED via EMS for CP that started around midnight last night. Pt states she had stents placed in November. Pt states the pain eased up some today but now she feels like it's worse. Pt is A&O*4 and IV access obtained by EMS. Pt rates pain 08/15. History of Present Illness HPI narrative: This patient is a 68-year-old female with a history of CAD status post recent stenting, hypertension, hyperlipidemia, type 2 diabetes, obesity presenting to the emergency department for evaluation with concern for chest pain. Patient had a cath in November with stents placed. She states that she started having midsternal chest pressure that feels like something sitting on her chest around 1230 last night. No other associated symptoms, such as fevers, chills, cough, congestion, shortness of breath, abdominal pain, nausea, vomiting, changes bowel movements, or other concerns. She states that has been intermittent. Nothing seems to bring it on or make it worse. It is up some today but she felt like it got acutely worse tonight. She arrives by EMS who gave aspirin prior to arrival. Related Data Home Medications ?Medication ?Instructions ?Recorded ?Confirmed albuterol sulfate 90 mcg/actuation 1 ea inhalation BID 07/07/22 11/23/23 breath activated powder inhaler,sensor (Proair Digihaler) blood sugar diagnostic (OneTouch #10 ea 07/07/22 11/23/23 Verio test strips) semaglutide 0.25 mg or 0.5 mg (2 0.5 mg SQ WEEKLY 09/07/23 11/23/23 mg/3 mL) subcutaneous pen injector (Ozempic) Previous Rx's ?Medication ?Instructions ?Recorded blood-glucose meter #1 ea 07/13/22 blood sugar diagnostic (FreeStyle #100 ea 09/15/22 Test strips) lancets (Accu-Chek Softclix #200 ea 11/03/22 Lancets) blood sugar diagnostic (FreeStyle #100 ea 04/06/23 Lite Strips) famotidine 20 mg tablet 20 mg PO DAILY #30 tabs 07/27/23 bupropion HCl 100 mg tablet,12 hr See Rx Instructions .Route 10/23/23 sustained-release .COMPLEX #90 tabs aspirin 81 mg tablet,delayed 81 mg PO DAILY #90 tabs 11/23/23 release carvedilol 12.5 mg tablet 12.5 mg PO BID #60 tabs 11/23/23 lisinopril 10 1 tab PO DAILY #90 tabs 11/23/23 mg-hydrochlorothiazide 12.5 mg tablet pantoprazole 40 mg tablet,delayed 40 mg PO DAILY #90 tabs 11/23/23 release (Protonix) prasugrel 10 mg tablet (Effient) 10 mg PO DAILY #90 tabs 11/23/23 rosuvastatin 20 mg tablet 20 mg PO DAILY #90 tabs 11/23/23 metformin 1,000 mg tablet 1,000 mg PO BID #180 tabs 12/28/23 Allergies Allergy/AdvReac Type Severity Reaction Status Date / Time ibuprofen AdvReac Verified 11/23/23 14:31 REPLACED BY [facility] <Laverne Arredondo DO - Last Filed: 01/21/24 23:27> REPLACED BY [facility] Disclaimer: The information contained in this section may have been updated after the patient was seen, as this information can be updated by other users. Medical History Coronary artery disease Abnormal echocardiogram Abnormal electrocardiogram [ECG] [EKG] History of cataract Hypertension Hyperlipidemia Surgical History History of coronary artery stent placement History of cholecystectomy H/O tubal ligation Family History Other Family history of acute congestive heart failure Family history of cancer Social History Smoking Status: Unknown if ever smoked alcohol intake: current alcohol intake frequency: holidays/special occasions only substance use type: denies use current occupational status: disabled Travel in the last 8 weeks: None caffeine: Yes Have you lived/traveled outside [place] in past 30 days?: No Contact w/someone who lives/traveled outside [place] past 30 days?: No Exposure to someone with infectious disease in past 14 days?: No Do you have a fever (greater than 100.4 F or 38 C)?: No Have you tested positive for COVID-19: No Exposed to someone with COVID-19 in past 14 days?: No Do you have a sore throat?: No Do you have a cough?: No Do you have any weakness?: No Do you have any diarrhea?: No Are you experiencing any unusual bleeding?: No Do you have any muscle aches/pain?: No Do you have any abdominal pain?: No Are you experiencing loss of taste or smell?: No Other Medical History Have you received the Flu Vaccine for this season: No Have you received the Pneumonia Vaccine: No <Laverne Arredondo DO - Last Filed: 01/21/24 23:27> ROS Obtained: Yes All systems reviewed & no additional complaints except as documented Physical Exam <Laverne Arredondo DO - Last Filed: 01/21/24 23:27> General General appearance: alert and in no apparent distress Head Head exam: atraumatic and normocephalic Eye Eye exam: Present normal appearance, PERRL and EOMI ENT ENT exam: Present normal exam, normal oropharynx, mucous membranes moist and normal external ear exam Neck Neck exam: Present normal inspection, full ROM and trachea midline; Absent tenderness Chest Chest inspection: Present normal inspection and symmetric chest wall rise; Absent tenderness Respiratory Respiratory exam: Present normal lung sounds bilaterally; Absent respiratory distress, wheezes, stridor or accessory muscle use Cardiovascular Cardiovascular exam: Present regular rate and normal rhythm Abdominal Exam Abdominal exam: Present soft; Absent distention, tenderness or guarding Extremities Exam Extremities exam: Present normal inspection, full ROM and normal capillary refill; Absent tenderness or edema Back Exam Back exam: Present normal inspection and full ROM; Absent tenderness Neurological Exam Neurological exam: Present alert, oriented X3, CN II-XII intact and normal gait; Absent motor sensory deficit Psychiatric Psychiatric exam: Present normal affect and normal mood Skin Skin exam: Present warm and dry HEART Score <DO Margo Curran Filed: 01/21/24 23:27> HEART Score HEART Score assessment performed?: Yes History (anamnesis): Slightly suspicious ECG: Normal Age: >65 years Risk factors: Atherosclerosis history Troponin: </= normal limit HEART Score: 4 <Chase Keys MD - Last Filed: 01/22/24 00:38> HEART Score HEART Score: 4 Critical Care <Laverne Arredondo DO - Last Filed: 01/21/24 23:27> Critical Care Time Critical Care Time: No Medical Decision Making <Laverne Arredondo DO - Last Filed: 01/21/24 23:27> Medical Records Medical records reviewed: Yes I reviewed the patient's medical records. Poli Inquiry Pt receiving controlled substance: No Vital Signs Vital Signs: 01/21/24 22:30 Temperature 97.9 F Temperature Source Oral Pulse Rate [Left] 70 Respiratory Rate 16 Blood Pressure [Right Arm] 143/78 H Blood Pressure Mean [Right Arm] 99 02 Sat by Pulse Oximetry 98 Oxygen Delivery Method Room Air Lab Data Labs: Lab Results 01/21/24 22:42: WBC 6.3, RBC 4.22, Hgb 14.7, Hct 42.7, MCV 101.3 H, MCH 34.9 H, MCHC 34.4, RDW 13.6, Plt Count 233, MPV 7.1 L, Neut % (Auto) 43.8, Lymph % (Auto) 47.9, Maury % (Auto) 5.7, Eos % (Auto) 1.6, Baso % (Auto) 1.0, Neut # (Auto) 2.8, Lymph # (Auto) 3.0, Maury # (Auto) 0.4, Eos # (Auto) 0.1, Baso # (Auto) 0.1, D-Dimer 1.22 H, Sodium 138, Potassium 4.1, Chloride 105, Carbon Dioxide 27, Anion Gap 10.1, BUN 12, Creatinine 0.60, Estimated Creat Clear 68, Estimated GFR 99, Est GFR ( Amer) 120, Glucose 158 H, Calcium 9.1, Total Bilirubin 0.7, AST 31, ALT 22, Alkaline Phosphatase 57, Troponin I < 0.01, NT-Pro-B Natriuret Pep 596 H, Total Protein 6.3, Albumin 4.0, Globulin 2.3, Albumin/Globulin Ratio 1.7 01/21/24 22:42 01/21/24 22:42 Response Orders (Tests/Meds): ED MEDICATIONS Generic Name Dose Route Start Last Admin Trade Name Danny PRN Reason Stop Dose Admin Sodium Chloride 10 ml 01/21/24 23:22 01/21/24 23:23 Sodium Chloride 0.9% 10ml Syr (Rad Only) IV 02/20/24 23:21 10 ml NEEDED PRN Administration Maintain IV Site Discontinued Medications Generic Name Dose Route Start Last Admin Trade Name Danny PRN Reason Stop Dose Admin Acetaminophen 1,000 mg 01/21/24 22:47 01/21/24 23:23 Acetaminophen 500mg Tab PO 01/21/24 22:48 500 mg ONCE ONE Administration Belladonna Alkaloids 60 ml 01/21/24 22:47 01/21/24 23:24 Belladonna Alkaloids 60 Ml Ml PO 01/21/24 22:48 60 ml ONCE ONE Administration Iopamidol 70 ml 01/21/24 23:22 01/21/24 23:22 Iopamidol-370 (76%);100ml Bottle IV 01/21/24 23:23 70 ml ONCE ONE Administration Sodium Chloride 50 ml 01/21/24 23:22 01/21/24 23:22 0.9 % Sodium Chloride 50 Ml Vial IV 01/21/24 23:23 50 ml ONCE ONE Administration ORDERS Category Date Time Status CT angio chest PE protocol Stat Cat Scan 01/21/24 23:06 Completed CXR --portable [XR chest portable] Stat Exams 01/21/24 22:34 Completed BNP [NT Pro Brain Natriuretic Pep.] Stat Lab 01/21/24 22:42 Completed Complete Blood Count Auto Diff Stat Lab 01/21/24 22:42 Completed Comprehensive Metabolic Panel Stat Lab 01/21/24 22:42 Completed D-Dimer Stat Lab 01/21/24 22:42 Completed HIV (1&2) Antibody Rapid Stat Lab 01/21/24 22:42 Received Hep C Ab with Reflex to RNA Stat Lab 01/21/24 22:42 Received Trop I [Troponin I] Stat Lab 01/21/24 22:42 Completed Troponin I Q3H Lab 01/22/24 01:45 Ordered Troponin I Q3H Lab 01/22/24 04:45 Ordered ECG Data Tracing #1: Attestation: I reviewed this ECG and interpreted as documented below: ECG Narrative: Normal sinus rhythm with ventricular rate of 65 bpm. Normal axis. No acute ST changes concerning for ischemia. ECG initial impression date: 01/21/24 ECG initial impression time: 22:23 MDM Narrative Medical Decision Narrative: In summary, this patient is a 68-year-old female presenting to the Emergency Department for evaluation of chest pain. Differential diagnoses considered include but are not limited to ACS, dysrhythmia, GERD, costochondritis, stable angina, unstable angina. Ruling out the most morbid conditions drove assessment. It should be noted patient's history includes CAD, hypertension, hyperlipidemia, diabetes which may or may not be at goal therapy. This complicates all aspects of care by increasing patient's risk for morbidity. I reviewed patient's past medical records and noted recent cardiac stenting in November as noted in HPI. On exam, the patient is lying in bed in no acute distress with normal vital signs on cardiac telemetry. EKG obtained is reassuring. No acute STEMI. EMS gave aspirin prior to arrival she states her pain feels a little bit better at this time. Workup included CBC, CMP, troponin, D-dimer, BNP, chest x-ray, EKG. D-dimer obtained given I cannot use PERC criteria to exclude PE given patient's age. Patient was given oral GI cocktail and Tylenol for symptomatic improvement of pain. Labs demonstrated negative troponin, reassuring CBC, reassuring chemistry. She does have elevated D-dimer, for which I ordered CT PE protocol. BNP is very mildly elevated. This was pending at time of signout to the oncoming provider, Dr. Keys. <Chase Keys MD - Last Filed: 01/22/24 00:38> Vital Signs Vital Signs: 01/21/24 22:30 Temperature 97.9 F Temperature Source Oral Pulse Rate [Left] 70 Respiratory Rate 16 Blood Pressure [Right Arm] 143/78 H Blood Pressure Mean [Right Arm] 99 02 Sat by Pulse Oximetry 98 Oxygen Delivery Method Room Air Lab Data Labs: Lab Results 01/21/24 22:42: WBC 6.3, RBC 4.22, Hgb 14.7, Hct 42.7, MCV 101.3 H, MCH 34.9 H, MCHC 34.4, RDW 13.6, Plt Count 233, MPV 7.1 L, Neut % (Auto) 43.8, Lymph % (Auto) 47.9, Maury % (Auto) 5.7, Eos % (Auto) 1.6, Baso % (Auto) 1.0, Neut # (Auto) 2.8, Lymph # (Auto) 3.0, Maury # (Auto) 0.4, Eos # (Auto) 0.1, Baso # (Auto) 0.1, D-Dimer 1.22 H, Sodium 138, Potassium 4.1, Chloride 105, Carbon Dioxide 27, Anion Gap 10.1, BUN 12, Creatinine 0.60, Estimated Creat Clear 68, Estimated GFR 99, Est GFR ( Amer) 120, Glucose 158 H, Calcium 9.1, Total Bilirubin 0.7, AST 31, ALT 22, Alkaline Phosphatase 57, Troponin I < 0.01, NT-Pro-B Natriuret Pep 596 H, Total Protein 6.3, Albumin 4.0, Globulin 2.3, Albumin/Globulin Ratio 1.7 Response Orders (Tests/Meds): ED MEDICATIONS Generic Name Dose Route Start Last Admin Trade Name Freq PRN Reason Stop Dose Admin Sodium Chloride 10 ml 01/21/24 23:22 01/21/24 23:23 Sodium Chloride 0.9% 10ml Syr (Rad Only) IV 02/20/24 23:21 10 ml NEEDED PRN Administration Maintain IV Site Discontinued Medications Generic Name Dose Route Start Last Admin Trade Name Freq PRN Reason Stop Dose Admin Acetaminophen 1,000 mg 01/21/24 22:47 01/21/24 23:23 Acetaminophen 500mg Tab PO 01/21/24 22:48 500 mg ONCE ONE Administration Belladonna Alkaloids 60 ml 01/21/24 22:47 01/21/24 23:24 Belladonna Alkaloids 60 Ml Ml PO 01/21/24 22:48 60 ml ONCE ONE Administration Iopamidol 70 ml 01/21/24 23:22 01/21/24 23:22 Iopamidol-370 (76%);100ml Bottle IV 01/21/24 23:23 70 ml ONCE ONE Administration Sodium Chloride 50 ml 01/21/24 23:22 01/21/24 23:22 0.9 % Sodium Chloride 50 Ml Vial IV 01/21/24 23:23 50 ml ONCE ONE Administration ORDERS Category Date Time Status CT angio chest PE protocol Stat Cat Scan 01/21/24 23:06 Completed CXR --portable [XR chest portable] Stat Exams 01/21/24 22:34 Completed BNP [NT Pro Brain Natriuretic Pep.] Stat Lab 01/21/24 22:42 Completed Complete Blood Count Auto Diff Stat Lab 01/21/24 22:42 Completed Comprehensive Metabolic Panel Stat Lab 01/21/24 22:42 Completed D-Dimer Stat Lab 01/21/24 22:42 Completed HIV (1&2) Antibody Rapid Stat Lab 01/21/24 22:42 Received Hep C Ab with Reflex to RNA Stat Lab 01/21/24 22:42 Received Trop I [Troponin I] Stat Lab 01/21/24 22:42 Completed Troponin I Q3H Lab 01/22/24 01:45 Ordered Troponin I Q3H Lab 01/22/24 04:45 Ordered MDM Narrative Medical Decision Narrative: In summary, this patient is a 68-year-old female presenting to the Emergency Department for evaluation of chest pain. Differential diagnoses considered include but are not limited to ACS, dysrhythmia, GERD, costochondritis, stable angina, unstable angina. Ruling out the most morbid conditions drove assessment. It should be noted patient's history includes CAD, hypertension, hyperlipidemia, diabetes which may or may not be at goal therapy. This complicates all aspects of care by increasing patient's risk for morbidity. I reviewed patient's past medical records and noted recent cardiac stenting in November as noted in HPI. On exam, the patient is lying in bed in no acute distress with normal vital signs on cardiac telemetry. EKG obtained is reassuring. No acute STEMI. EMS gave aspirin prior to arrival she states her pain feels a little bit better at this time. Workup included CBC, CMP, troponin, D-dimer, BNP, chest x-ray, EKG. D-dimer obtained given I cannot use PERC criteria to exclude PE given patient's age. Patient was given oral GI cocktail and Tylenol for symptomatic improvement of pain. Labs demonstrated negative troponin, reassuring CBC, reassuring chemistry. She does have elevated D-dimer, for which I ordered CT PE protocol. BNP is very mildly elevated. This was pending at time of signout to the oncoming provider, Dr. Keys. Keys: Upon my assumption of care patient is stable and resting comfortably, chest pain is resolved. CTA PE personally interpreted does not demonstrate PE or other acute intrathoracic pathology, see radiology read for final interpretation. Patient continues to be stable, given her duration of symptoms I do not believe serial troponin is indicated, she is appropriate for discharge at this time. Patient has close relationship with cardiology and I instructed her to follow-up with cardiology in the next 1 to 2 days. Patient was given instructions on symptomatic management, follow up instructions, and return precautions for the emergency department. Patient indicated understanding and was discharged in stable condition.
[2024-01-21] MEDS: ACETAMINOPHEN 500MG TAB 1000 MG PO (23:23)
[2024-01-21] MEDS: SODIUM CHLORIDE 0.9% 10ML SYR (RAD ONLY) 10 ML IV (23:23)
[2024-01-21] MEDS: BELLADONNA ALKALOIDS 60 ML ML PO (23:24)
[2024-01-22 01:03] VITALS: BP 139/95; PULSE 88; RESP 20; TEMP 36.8; O2SAT 97
[2024-01-23 06:10] LABS: HCV Ab Non Reactive (Non Reactive)
[2024-01-23 11:14] LABS: HIV Combo NEGATIVE (Negative)
== END 2024-01-22 01:09 | disposition home or self-care (01) ==
PROVIDERS: Emergency Provider Emergency Medicine; PCP Nurse Practitioner Family
DX: R07.9 Chest pain, unspecified (principal)
CPT/HCPCS: 71045; 71275; 80053; 83880; 84484; 85025; 85378; 86803; 87389; 93005; 99285; Q9967

== ENCOUNTER 2024-06-14 15:07 | Outpatient (CLI) | payer MEDICARE, SELFPAY ==
[2024-06-14 18:40] LABS: Basophils % 0.9 % (0.1-2.0); Eosinophils # 0.1 Kmm3 (0.0-0.4); Eosinophils % 2.2 % (0.1-12.0); Hematocrit 40.4 % (37.0-47.0); Immature Granulocytes # 0.01 10^3uL; Immature Granulocytes % 0.2 %; Lymphocytes # 1.8 K/mm3 (0.7-4.5); Lymphocytes % 40.8 % (10-50); Mean Corpuscular HGB Conc 34.7 g/dL (31.8-35.4); Mean Corpuscular Hemoglobin 34.7 pg (27.0-31.2); Mean Corpuscular Volume 100.2 fl (81-99); Monocytes # 0.4 K/mm3 (0.1-1.0); Monocytes % 9.6 % (1.7-9.3); Neutrophils # 2.1 K/mm3 (1.8-7.8); Neutrophils % 46.3 % (37.0-80.0); Nucleated Red Blood Cells # 0 10^3/uL; Nucleated Red Blood Cells % 0 %; Platelet Count 186 K/mm3 (142-424); Red Blood Count 4.03 M/mm3 (4.20-5.40); Red Cell Distribution Width 12.7 % (11.5-17.5); Red Cell Distribution Width-SD 46.8 fL; White Blood Count 4.5 K/mm3 (4.8-10.8)
[2024-06-14 19:09] LABS: Hemoglobin A1C 8.2 % (4.0-6.0); Microalbumin/Creatinine Ratio 7.3
[2024-06-14 19:10] LABS: Creatinine,Urine Random 84 mg/dL (Not Estab.)
[2024-06-14 19:14] LABS: Alanine Aminotransferase 14 U/L (12-78); Albumin Level 3.9 g/dl (3.5-5.0); Albumin/Globulin Ratio 1.9 (1.1-1.8); Alkaline Phosphatase 59 U/L (38-126); Anion Gap 5.7 mEq/L (5-15); Aspartate Amino Transferase 20 U/L (14-36); Bilirubin,Total 1.1 mg/dl (0.2-1.3); Blood Urea Nitrogen 13 mg/dl (7-17); Calcium 9.2 mg/dl (8.4-10.2); Carbon Dioxide 28 mmol/L (22.0-30.0); Chloride 106 mmol/L (98-107); Chol/HDL Ratio 1.9 (1-3.5); Cholesterol 111 mg/dl (140-200); Estimated Glomerular Filt Rate 99 ml/min (>60); GFR (African American) 120 ML/MIN (>60); Globulin 2.1 g/dL (1.3-3.2); Glucose 240 mg/dl (74-100); HDL Cholesterol 60 mg/dl (40-60); Potassium 4.7 mmoL/L (3.5-5.1); Sodium 135 mmol/L (136-145); Triglycerides 121 mg/dl (30-150); VLDL Cholesterol 24 mg/dL (0-40)
[2024-06-14 19:25] LABS: Direct LDL Cholesterol 41.02 mg/dL (100-129)
== END 2024-06-14 23:59 | disposition home or self-care (01) ==
LOC: LAB.DROPOF 06-17 10:29
PROVIDERS: PCP Family Medicine; Visit Provider Family Medicine
DX: E11.65 Type 2 diabetes mellitus with hyperglycemia (principal); Z00.00 Encounter for general adult medical examination without abnormal findings
CPT/HCPCS: 80053; 80061; 82043; 82570; 83036; 85025

== ENCOUNTER 2024-07-08 10:52 | Outpatient (CLI) | payer MEDICARE, SELFPAY ==
--- NOTE | 2024-07-08 11:00 | MM_ITS ---
PROCEDURE INFORMATION: Exam: MG Bilateral Screening 3D Mammography Exam date and time: 07/08/2024 11:10 AM Age: 69 years old Clinical indication: Screening exam TECHNIQUE: Imaging protocol: Bilateral Screening tomosynthesis and 2D mammography including computer-aided detection (CAD) when performed. COMPARISON: 1. MG MM DIG SCREENING MAMM BI W/CAD 11/25/2022 10:28 AM 2. MG MM DIG MAMM BI DX W/CAD 04/22/2020 2:48 PM FINDINGS: MAMMOGRAPHY: Breast composition: There are scattered areas of fibroglandular density. Mass: None. Architectural distortion: None. Calcifications: No suspicious calcifications. Asymmetric density: None. Skin thickening: None. Axillary adenopathy: None. IMPRESSION: No mammographic evidence of malignancy. Annual screening is recommended unless otherwise clinically indicated. ASSESSMENT: BI-RADS 1, Negative.
== END 2024-07-08 23:59 | disposition home or self-care (01) ==
LOC: RAD 10:53
PROVIDERS: PCP Family Medicine; Visit Provider Family Medicine
DX: Z12.31 Encounter for screening mammogram for malignant neoplasm of breast (principal); R92.323 Mammographic fibroglandular density, bilateral breasts
CPT/HCPCS: 77063; 77067